=== PATIENT | female | born 1975 | race Two or more races ===

== ENCOUNTER 2023-06-08 20:01 | Emergency (ER) | payer OTHER ==
[~2023-06-08] VITALS: Ht 154.9 cm; Wt 64.4 kg
[2023-06-08 21:51] LABS: HEMATOCRIT 38.5 % (36.0-45.00); HEMOGLOBIN 13.3 g/dL (12.0-15.00); MEAN CORPUSCULAR HGB CONC 34.5 g/dl (32.0-36.0); PLATELET COUNT 269 K/uL (150-450); RED BLOOD COUNT 4.42 M/uL (4.00-6.00); RED CELL DISTRIBUTION WIDTH 12.8 % (11.5-14.5)
[2023-06-08 21:54] LABS: PH,URINE 5.5 (5.0-8.0); URINE APPEARANCE Clear; URINE BILIRRUBIN Negative (NEGATIVE); URINE COLOR Yellow; URINE GLUCOSE Negative (NEGATIVE); URINE LEUKOCYTE Negative; URINE NITRATE Negative; URINE PROTEIN Negative (NEGATIVE); URINE UROBILINOGEN 0.2 E.U./dl
[2023-06-08 21:58] LABS: URINE BACTERIA 303.5 uL (0.0-1933); URINE EPITHELIAL CELLS 8.3 uL (0.0-38.8); URINE RBC 2.7 uL (0.0-20.8); URINE WBC 3.6 uL (0.0-23.2)
[2023-06-08 22:03] LABS: URINE BLOOD TRACE
[2023-06-08 22:10] LABS: INR 0.97; PARTIAL THROMBOPLASTIN TIME 27.2 SECONDS (22.0-34.0); PROTHROMBIN TIME 10.2 SECONDS (9.0-11.5)
[2023-06-08 22:15] LABS: ANION GAP 10 (10.0-20.0); BLOOD UREA NITROGEN 16 mg/dL (7-18); BUN CREA RATIO 18 (7.0-25.0); CALCIUM 9.2 mg/dL (8.5-10.1); CARBON DIOXIDE 25 mEq/L (21-32); CHLORIDE 109 mmol/L (98-107); GFR 67.41; GLUCOSE FASTING 114 mg/dL (65-100); OSMOLALITY SERUM 281 MOSM/KG (275-295); POTASSIUM 3.76 mEq/L (3.5-5.1); SODIUM 140 mmol/L (136-145)
[2023-06-08 22:20] LABS: HCG QUANTITATIVE < 1 mUI/mL (1-3)
== END 2023-06-08 22:48 | disposition home or self-care (01) ==
LOC: ER 20:01
PROVIDERS: General Practice
DX: R07.89 Other chest pain (principal); E86.0 Dehydration